=== PATIENT | male | born 1965 | race Caucasian/White ===

== ENCOUNTER 2019-02-24 20:18 | Emergency (ER) | payer SELFPAY ==
[~2019-02-24] VITALS: Ht 177.8 cm; Wt 75.0 kg
[2019-02-24 20:24] VITALS: TEMP 97.1
[2019-02-24 21:05] LABS: BASO % 0.6 % (0.0-2.0); EOS # 0.1 (0.0-0.7); EOS % 1.5 % (0-4.0); GRAN # 2.1 (1.4-6.5); HEMATOCRIT 37.4 % (42.0-52.0); LYMPH % 29.4 % (20.0-51.0); MEAN CELL VOLUME 83 fl (80.0-100.0); MEAN CORPUSCULAR HEMOGLOBIN 29 pg (27.0-31.0); MEAN CORPUSCULAR HGB CONC 35 g/dl (33.0-37.0); MONO # 0.3 (0.1-0.6); MONO % 7.9 % (1.7-9.3); PLATELET COUNT 156 K/mm3 (130-400); RED BLOOD COUNT 4.52 M/mm3 (4.20-5.60); REDCELL DISTRIBUTION WIDTH-CV 12.8 % (11.5-14.5)
[2019-02-24 21:20] LABS: ALANINE AMINOTRANSFERASE 37 U/L (21-72); ALBUMIN 4.2 gm/dL (3.5-5.0); ALKALINE PHOSPHATASE 84 U/L (50-136); ANION GAP 16 mmol/L (7-16); AST,SGOT 54 U/L (15-37); BILIRUBIN,TOTAL 0.6 mg/dL (0.0-1.0); BLOOD UREA NITROGEN 33 mg/dL (9-20); C-REACTIVE PROTEIN 4.5 mg/dL (0.0-0.9); CALCIUM 8.8 mg/dL (8.4-10.2); CARBON DIOXIDE 22 mmol/L (22-30); CHLORIDE 95 mmol/L (98-107); CREATININE, serum 1.43 (0.66-1.25); GLUCOSE 212 mg/dL (74-106); LIPASE 774 U/L (23-300); SODIUM 133 mmol/L (137-145); TOTAL PROTEIN 7.7 gm/dL (6.4-8.2)
[2019-02-24 21:33] LABS: ACETONE,SERUM NEGATIVE; TROPONIN-I < 0.012 ng/mL (0.000-0.035)
[2019-02-24] MEDS ORDERED: NOVOLOG FLEX100 U/ML SQ (22:04)
[2019-02-24] MEDS ORDERED: LEVEMIR FLEX100 U/ML SQ (22:05)
[2019-02-24] MEDS ORDERED: ASPIRIN 81M81 MG/TA2 PO (22:06)
[2019-02-24] MEDS ORDERED: NEURONTIN800 MG/TAB PO (22:07)
[2019-02-24] MEDS ORDERED: DEPAKOTE ER 50500 MG PO (22:08)
[2019-02-24] MEDS ORDERED: CYMBALTA 60MG60 MG PO (22:08)
[2019-02-24] MEDS ORDERED: PRINIVIL10 MG PO (22:09)
[2019-02-24] MEDS ORDERED: FLEXERIL5 MG PO (22:11)
[2019-02-24] MEDS ORDERED: NASONEX SPRAY17 GM NS (22:12)
[2019-02-24] MEDS ORDERED: DOXYCYCLINE 10100 MG PO (23:07)
[2019-02-24 23:22] LABS: COLLECTION METHOD CLEAN CATCH
[2019-02-24 23:30] LABS: PH 5 (5-8); SQUAMOUS EPITHELIAL 0-2 /hpf; URINE APPEARANCE Clear; URINE BACTERIA None Seen /hpf; URINE BILIRUBIN Negative (NEGATIVE); URINE BLOOD Negative (NEGATIVE); URINE COLOR Yellow; URINE GLUCOSE 1+ (NEGATIVE); URINE KETONE 1+ (NEGATIVE); URINE LEUKOCYTE ESTERASE Negative (NEGATIVE); URINE NITRATE Negative (NEGATIVE); URINE PROTEIN(semi-quant) Negative (NEGATIVE); URINE RBC None Seen /hpf; URINE UROBILINOGEN Negative (NEGATIVE)
[2019-02-24 23:45] VITALS: BP 120/65; PULSE 81
[2019-03-01 07:41] LABS: LYME DISEASE ANTIBODIES Negative (Negative)
== END 2019-02-24 23:45 | disposition home or self-care (01) ==
LOC: COL.ER 20:18
PROVIDERS: Emergency Medicine
DX: R50.9 Fever, unspecified (principal); R21 Rash and other nonspecific skin eruption; E11.9 Type 2 diabetes mellitus without complications; N19 Unspecified kidney failure; Z20.828 Contact with and (suspected) exposure to other viral communicable diseases; Z79.4 Long term (current) use of insulin; Z79.82 Long term (current) use of aspirin
CPT/HCPCS: J0696; J1200; J2405; J2930; J3010; J7030; Q9967

== ENCOUNTER 2019-02-28 12:23 | Emergency (ER) | payer SELFPAY ==
[~2019-02-28] VITALS: Ht 177.8 cm; Wt 72.7 kg
[~2019-02-28 12:23] MED LIST: ASPIRIN 81M81 MG/TA2 PO; CYMBALTA 60MG60 MG PO; DEPAKOTE ER 50500 MG PO; DOXYCYCLINE 10100 MG PO; FLEXERIL5 MG PO; LEVEMIR FLEX100 U/ML SQ; NASONEX SPRAY17 GM NS; NEURONTIN800 MG/TAB PO; NOVOLOG FLEX100 U/ML SQ; PRINIVIL10 MG PO
[2019-02-28 12:29] VITALS: TEMP 98.9
[2019-02-28 13:47] LABS: HEMATOCRIT 45.7 % (42.0-52.0); HEMOGLOBIN 15.5 g/dl (13.5-18.0); MEAN CELL VOLUME 84 fl (80.0-100.0); MEAN CORPUSCULAR HEMOGLOBIN 29 pg (27.0-31.0); MEAN CORPUSCULAR HGB CONC 34 g/dl (33.0-37.0); MEAN PLATELET VOLUME 10.6 fl (7.4-10.4); PLATELET COUNT 181 K/mm3 (130-400); RED BLOOD COUNT 5.43 M/mm3 (4.20-5.60); REDCELL DISTRIBUTION WIDTH-CV 12.9 % (11.5-14.5)
[2019-02-28 14:02] LABS: ALBUMIN 4.3 gm/dL (3.5-5.0); BILIRUBIN,TOTAL 0.9 mg/dL (0.0-1.0); CALCIUM 9.5 mg/dL (8.4-10.2); CREATININE, serum 0.79 (0.66-1.25); POTASSIUM 4.6 mmol/L (3.4-5.0); TOTAL PROTEIN 8.2 gm/dL (6.4-8.2)
[2019-02-28 14:05] LABS: LYMPHOCYTE 29 % (20.0-51.0); NEUTROPHILS 67 % (42.0-75.2); PLATELET ESTIMATE NORMAL (NORMAL)
[2019-02-28] MEDS ORDERED: ZOFRAN 4MG T4 MG/TAB PO (15:24)
[2019-02-28] MEDS ORDERED: NAPROSYN500 MG PO (15:24)
[2019-02-28 15:49] VITALS: BP 123/79; PULSE 82
== END 2019-02-28 15:51 | disposition home or self-care (01) ==
LOC: COL.ER 12:23
PROVIDERS: Nurse Practitioner Primary Care
DX: R11.0 Nausea (principal); R52 Pain, unspecified; I10 Essential (primary) hypertension; F32.9 Major depressive disorder, single episode, unspecified; E11.40 Type 2 diabetes mellitus with diabetic neuropathy, unspecified; Z79.4 Long term (current) use of insulin; Z79.82 Long term (current) use of aspirin; Z79.51 Long term (current) use of inhaled steroids
CPT/HCPCS: J1885; J2405

== ENCOUNTER → 2019-03-03 | Outpatient (CLI) | payer SELFPAY ==
[~2019-03-03] MED LIST changes: +NAPROSYN500 MG PO; +ZOFRAN 4MG T4 MG/TAB PO
[2019-03-03 19:48] LABS: BASO % 0.3 % (0.0-2.0); EOS # 0.2 (0.0-0.7); EOS % 2.1 % (0-4.0); GRAN # 4.4 (1.4-6.5); GRAN % 60.6 % (42.2-75.2); HEMATOCRIT 42.4 % (42.0-52.0); HEMOGLOBIN 14.4 g/dl (13.5-18.0); LYMPH # 2.1 (1.2-3.4); LYMPH % 28.7 % (20.0-51.0); MEAN CELL VOLUME 84 fl (80.0-100.0); MEAN CORPUSCULAR HEMOGLOBIN 29 pg (27.0-31.0); MEAN CORPUSCULAR HGB CONC 34 g/dl (33.0-37.0); MEAN PLATELET VOLUME 10.7 fl (7.4-10.4); MONO # 0.5 (0.1-0.6); MONO % 7.3 % (1.7-9.3); PLATELET COUNT 240 K/mm3 (130-400); RED BLOOD COUNT 5.04 M/mm3 (4.20-5.60); REDCELL DISTRIBUTION WIDTH-CV 12.7 % (11.5-14.5)
[2019-03-03 19:59] LABS: ALANINE AMINOTRANSFERASE < 6 U/L (21-72); ALBUMIN 4.1 gm/dL (3.5-5.0); ALKALINE PHOSPHATASE 92 U/L (50-136); AMYLASE 90 U/L (30-110); ANION GAP 14 mmol/L (7-16); AST,SGOT 24 U/L (15-37); BILIRUBIN,TOTAL 0.6 mg/dL (0.0-1.0); BLOOD UREA NITROGEN 28 mg/dL (9-20); CALCIUM 9.5 mg/dL (8.4-10.2); CARBON DIOXIDE 22 mmol/L (22-30); CHLORIDE 99 mmol/L (98-107); CREATININE, serum 1.18 (0.66-1.25); GLUCOSE 365 mg/dL (74-106); LIPASE 303 U/L (23-300); POTASSIUM 4.4 mmol/L (3.4-5.0); SODIUM 135 mmol/L (137-145); TOTAL PROTEIN 7.8 gm/dL (6.4-8.2)
[2019-03-03 20:28] LABS: HIV 1/2 Antibodies Non-Reactive; HIV-1p24 Antigen Non-Reactive
== END ==
LOC: COL.LAB 18:50
PROVIDERS: Registered Nurse
DX: R07.9 Chest pain, unspecified (principal); R74.8 Abnormal levels of other serum enzymes; R11.0 Nausea; R53.83 Other fatigue

== ENCOUNTER → 2019-03-11 | Outpatient (CLI) | payer SELFPAY | LOC: COL.VAS 14:54 | DX: R07.9 Chest pain, unspecified (principal); E10.40 Type 1 diabetes mellitus with diabetic neuropathy, unspecified; I10 Essential (primary) hypertension; R74.8 Abnormal levels of other serum enzymes; R11.0 Nausea; R53.83 Other fatigue ==

== ENCOUNTER → 2019-03-29 | Outpatient (CLI) | payer SELFPAY ==
[2019-03-29 16:23] LABS: BASO # 0.1 (0.0-0.2); BASO % 0.7 % (0.0-2.0); EOS # 0.3 (0.0-0.7); EOS % 4.8 % (0-4.0); GRAN # 3.3 (1.4-6.5); GRAN % 47.6 % (42.2-75.2); HEMATOCRIT 37.3 % (42.0-52.0); HEMOGLOBIN 12.3 g/dl (13.5-18.0); LYMPH # 2.8 (1.2-3.4); LYMPH % 39.1 % (20.0-51.0); MEAN CELL VOLUME 87 fl (80.0-100.0); MEAN CORPUSCULAR HEMOGLOBIN 29 pg (27.0-31.0); MEAN CORPUSCULAR HGB CONC 33 g/dl (33.0-37.0); MONO # 0.5 (0.1-0.6); MONO % 7.4 % (1.7-9.3); PLATELET COUNT 248 K/mm3 (130-400); RED BLOOD COUNT 4.31 M/mm3 (4.20-5.60); REDCELL DISTRIBUTION WIDTH-CV 13.7 % (11.5-14.5)
[2019-03-29 16:31] LABS: ALBUMIN 4.2 gm/dL (3.5-5.0); BILIRUBIN,TOTAL 0.3 mg/dL (0.0-1.0); CALCIUM 9.5 mg/dL (8.4-10.2); CREATININE, serum 0.8 (0.66-1.25); POTASSIUM 4.7 mmol/L (3.4-5.0); TOTAL PROTEIN 7.8 gm/dL (6.4-8.2)
[2019-03-29 17:25] LABS: ERYTHROCYTE SEDIMENTATION RATE 20 mm/hr (0-30)
[2019-03-30 16:50] LABS: RHEUMATOID FACTOR-SCREEN <15 IU/mL (0-29)
[2019-03-31 01:14] LABS: ANA SCREEN with REFLEX Negative (Negative)
[2019-03-31 01:53] LABS: RPR (VDRL) XXX
== END ==
LOC: COL.LAB 15:55
PROVIDERS: Registered Nurse
DX: R21 Rash and other nonspecific skin eruption (principal); R53.83 Other fatigue; R52 Pain, unspecified

== ENCOUNTER → 2019-06-28 | Outpatient (CLI) | payer SELFPAY | LOC: COL.VAS 15:00 | DX: E10.40 Type 1 diabetes mellitus with diabetic neuropathy, unspecified (principal); I10 Essential (primary) hypertension; R42 Dizziness and giddiness; R55 Syncope and collapse ==